=== PATIENT | male | born 1950 | race African-American/Black ===

== ENCOUNTER 2018-03-13 04:10 | Emergency (ER) | payer OTHER ==
[2018-03-13] MEDS ORDERED: DIAZEPAM INJ 10 MG/2 ML DISP.SYRIN IM ONE (04:31)
--- NOTE | 2018-03-13 04:44 | ER Document Report ---
Addendum entered and electronically signed by YOLIE RICO PA 03/14/18 02:58: History of Present Illiness - HPI HPI: Patient is a 67 year old male that comes to the Emergency Department for chief complaint of pain to the right side of his neck and shoulder. He states it is difficult to turn his head. He has had progressively worsening pain for the past two days. He denies injury but states he has slept of the couch for the past few days which is new for him. He denies numbness, headache, fever, vomiting. PMH of type II diabetes and hypertension. Original Note: HPI - HPI Time Seen by Provider: 03/13/18 04:21 Pain Level: 5 Past Medical History - General Information source: Patient - Social History Smoking Status: Never Smoker Frequency of alcohol use: Occasional Drug Abuse: Marijuana Lives with: Family Family History: Reviewed & Not Pertinent - Past Medical History Cardiac Medical History: Reports: Hx Hypertension Endocrine Medical History: Reports: Hx Diabetes Mellitus Type 2 - Immunizations Immunizations up to date: Yes Hx Diphtheria, Pertussis, Tetanus Vaccination: Yes Vertical Provider Document - CONSTITUTIONAL General Appearance: Mild Distress - Patient is uncomfortable and has trouble moving/turning his head - INFECTION CONTROL TRAVEL OUTSIDE OF THE [place] IN LAST 30 DAYS: No - HEENT HEENT: Atraumatic, Normal ENT Exam, Normocephalic - NECK Neck: Normal Inspection - RESPIRATORY Respiratory: Breath Sounds Normal, No Respiratory Distress - CARDIOVASCULAR Cardiovascular: Regular Rate, Regular Rhythm - GI/ABDOMEN Gastrointestinal: Abdomen Soft, Abdomen Non-Tender - BACK Back: negative: Normal Inspection - Tender over the right paracervical musculature with very some point specific tenderness causing severe pain over bunched up muscle fibers. This pain extends towards the right trapezius muscle. Very limited ability to turn the head laterally. No midline tenderness over the back, no saddle anesthesia, normal distal neurovascular exam, normal back exam otherwise. - MUSCULOSKELETAL/EXTREMETIES Musculoskeletal/Extremeties: MAEW, FROM, Non-Tender - NEURO Level of Consciousness: Awake, Alert, Appropriate - DERM Integumentary: Warm, Dry, No Rash Course - Re-evaluation Re-evalutation: Initially patient was anxious, he has very specific palpable muscle spasm along the paracervical musculature extending to the trapezius on the right side. He does not have any neurological deficits, he has not had any injury or fever, he states he is getting intermittent headaches but none at this time. Initially he was given Valium, this did not have great effect. Dr. Gardiner did recommend a trigger point injection which he performed for the patient, afterwards patient was able to become more comfortable. He became more relaxed. He is not tachycardic on my exam. He states he will continue his treatment at home and follow-up with the [facility]. I discussed return precautions in detail with the patient, patient states understanding and agreement with plan. - Vital Signs Vital signs: Temp Pulse Resp BP Pulse Ox 98.9 F 110 H 22 H 155/97 H 99 03/13/18 04:13 03/13/18 04:13 03/13/18 04:13 03/13/18 04:13 03/13/18 04:13 Discharge - Discharge Clinical Impression: Neck pain, Muscle spasm Condition: Stable Disposition: HOME, SELF-CARE Additional Instructions: Your evaluation is most consistent with muscle spasm of the paracervical muscle. Take medications as prescribed, apply heat to the area, do gentle stretches. This should slowly resolve with time. Follow-up with primary care. Return for any concerning or worsening symptoms including numbness, severe headache, vomiting, fever, or any other concerning or worsening symptoms. Prescriptions: Diazepam [Valium 5 mg Tablet] 1 - 2 tab PO TID PRN #12 tablet PRN Reason: Naproxen [Naprosyn 250 mg Tablet] 250 mg PO BID PRN #14 tablet PRN Reason: Referrals: [facility] [[facility]] - Follow up as needed
[2018-03-13] MEDS ORDERED: LIDOCAINE 2% INJ (20 MG/ML) 20 ML MDV INJ ONE (05:15)
[2018-03-13] MEDS ORDERED: METHYLPREDNISOLONE INJ 40 MG/1 ML SDV IM ONE (05:18)
[2018-03-13] MEDS ORDERED: TRIAMCINOLONE ACETONIDE INJ 10 MG/1 ML 5 ML VIAL INJ SCH (05:30)
--- NOTE | 2018-03-13 05:56 | ER Document Report ---
Doctor's Note Notes: I personally and independently obtained patient history and examined the patient in conjunction with the APC and agree with the assessment, treatment plan and disposition of the patient as recorded by the APC, and have reviewed the APC's note. HISTORY OF PRESENT ILLNESS: Patient is a 67-year-old male that presents to the emergency department for chief complaint of neck pain. Patient apparently was sleeping on a couch, and was having neck pain yesterday that worsened through this morning which brought him to the ED. It is on the right side of his neck, extending from the occiput, down to his trapezius muscle. ROS: Constitutional: Negative for fever. Cardiovascular: Negative for chest pain. Respiratory: Negative for shortness of breath. Gastrointestinal: Negative for vomiting or abdominal pain Musculoskeletal: Negative for arm, leg or back pain, positive for neck pain Skin: Negative for rash. Neurological: Negative for weakness or numbness. Other than noted above, the 12 point review of systems was reviewed with the patient and were negative, all pertinent findings are included in the HPI. PHYSICAL EXAMINATION: Vital signs reviewed, nursing noted reviewed. GENERAL: Well-appearing, well-nourished, appears uncomfortable HEAD: Atraumatic, normocephalic. EYES: Eyes appear normal, conjunctiva are normal. ENT: nares patent, oropharynx clear without exudates. Moist mucous membranes. NECK: Normal range of motion, supple without lymphadenopathy, focal tenderness with palpation along the paraspinal musculature of the cervical spine, particularly on the right. LUNGS: Breath sounds clear to auscultation bilaterally and equal. No wheezes rales or rhonchi. HEART: Regular rate and rhythm without murmurs EXTREMITIES: Nontender, good range of motion, no pitting or edema. NEUROLOGICAL: No focal neurological deficits. Moves all extremities spontaneously Motor and sensory grossly intact on exam. PSYCH: Normal mood, normal affect. SKIN: Warm, Dry, normal turgor, no rashes or lesions noted on exposed MEDICAL DECISION MAKING: PROCEDURE: TRIGGER POINT INJECTION: After explaining the risks and benefits of the procedure. Using a mixture of solu-medrol 40mg and 2% lidocaine a total of 2mL was injected into 2 locations of the right paraspinal musculature. Patient tolerated well no complications. Patient will be discharged with muscle relaxer, advised warm compresses, and follow-up with his primary care. Please review detail APC documentation. *Note is created using voice recognition software and may contain spelling, syntax or grammatical errors.
[2018-03-13 06:10] VITALS: BP 156/96
== END 2018-03-13 06:10 | disposition home or self-care (01) ==
LOC: ER 04:10
DX: M54.2 Cervicalgia (principal); M25.511 Pain in right shoulder; E11.9 Type 2 diabetes mellitus without complications; I10 Essential (primary) hypertension
CPT/HCPCS: 20552; 99283; 96372; J3490 ×2; J3360; J2920